=== PATIENT | female | born 1990 | race Caucasian/White ===

== ENCOUNTER 2016-05-03 07:51 | Emergency (ER) | payer SELFPAY ==
[2016-05-03 08:05] VITALS: BP 140/83
[2016-05-03] MEDS ORDERED: Benzoin Compound STICK ONE (09:11)
--- NOTE | 2016-05-03 09:24 | UC ---
Gita Araiza Alok, scribed for Annalisa Nguyen MD on 05/03/16 at 0911 . Laceration HPI - HPI Summary HPI Summary: 26 y/o female presents to the ED with a laceration on the top of the left thumb. Her thumb is currently not bleeding and she has not taken anything for pain. 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 Her last Tetanus shot was 4 years ago. Not immunocompromised. Pt denies any pertinent PMHx or PSHx, takes no regular medication and has NKDA. Pt denies any chance of . Pt denies any EtOH use and smokes < 1/2 ppd of tobacco product. - History Of Current Complaint Chief Complaint: UCLaceration Stated Complaint: THUMB LAC Hx Obtained From: Patient Laceration Location: Hand - Top of left thumb Mechanism Of Injury: Sharp Trauma Onset/Duration: Sudden Onset, Lasting Hours, Still Present Severity: Moderate Aggravating Factors: Nothing Related History: Occupational Injury, Dominant Hand Right - Allergies/Home Medications Allergies/Adverse Reactions: Allergies Allergy/AdvReac Type Severity Reaction Status Date / Time No Known Allergies Allergy Verified 05/03/16 07:59 Home Medications: Home Medications NK [No Home Medications Reported] 05/03/16 [History Confirmed 05/03/16] PMH/Surg Hx/FS Hx/Imm Hx Previously Healthy: Yes Endocrine History Of: Denies: Diabetes, Thyroid Disease Cardiovascular History Of: Denies: Cardiac Disorders, Hypertension Respiratory History Of: Denies: COPD, Asthma GI/ History Of: Denies: Ulcer - Surgical History Surgical History: Yes Surgery Procedure, Year, and Place: LEFT EYE SURGERY AGE 2.5 YRS c section 2012, WISDOM TEETH - Family History Known Family History: Negative: Cardiac Disease, Diabetes - Social History Lives: With Family - Mother Alcohol Use: None Substance Use Type: None Smoking Status (MU): Light Every Day Tobacco Smoker Type: Cigarettes Amount Used/How Often: 1/2 PPD - Immunization History Most Recent Influenza Vaccination: none Most Recent Tetanus Shot: 2012 Review of Systems Constitutional: Negative Skin: Other - Laceration top left thumb Eyes: Negative ENT: Negative Respiratory: Negative Cardiovascular: Negative Gastrointestinal: Negative Genitourinary: Negative Motor: Negative Neurovascular: Negative Musculoskeletal: Negative Neurological: Negative Psychological: Negative All Other Systems Reviewed And Are Negative: Yes Physical Exam Triage Information Reviewed: Yes Appearance: Well-Appearing, No Pain Distress, Well-Nourished Vital Signs: Initial Vital Signs Temp 98.8 F 05/03/16 08:00 Pulse 94 05/03/16 08:00 Resp 16 05/03/16 08:00 BP 140/83 05/03/16 08:00 Pulse Ox 100 05/03/16 08:00 Vital Signs Reviewed: Yes Respiratory: Positive: Normal breath sounds, No respiratory distress Cardiovascular: Positive: Other: - radial 2+ CBT < 2 sec all digits Musculoskeletal Exam: Normal Musculoskeletal: Positive: Other: - + flex/ext MCP, IP against resistance Neurological: Positive: Other: - + sensation throughout finger tip Skin: Positive: Other - No active bleeding Pt with 1cm "U" shaped laceration medial aspect distal thumb, no nail involvement Flap superficial non-suturable Laceration Repair - Laceration Repair 1 Description: Linear Laceration Size After Repair: Length (cm) - 1 Modified For Repair: No Cleansing Completed Via Routine Prep: Yes Closure Material: Skin Adhesive, SteriStrips Closure Method: Single Layer Laceration Course/Dx - Course/Dx Course Of Treatment: Pt with superficial skin flap laceration to left distal thumb. Closed with adhesion glue and steri strips. reviewed with pt wound care , s/sinfection. motrin/apap prn. work modificatons. tdap UTD. return prn - Differential Dx - Laceration/Wound Provider Diagnoses: laceration Discharge - Discharge Plan Condition: Stable Disposition: HOME Patient Education Materials: Laceration (ED), Skin Adhesive Care (ED), Steristrips (ED) Forms: *Work Release Referrals: Ford Stewart MD [Primary Care Provider] - Additional Instructions: - Keep wound clean and dry for the frst 48 hours. Then it is okay to get wet, pat dry - Monitor for signs of infection - reddness, red streaking, odor, drainage - Okay to alternate ibuprofen (advil, motrin) and tylenol every 3 hours for pain - If the steri strips fall off - okay to apply bandaid -Contact your doctor or return with any questions or concerns The documentation as recorded by the Gita mena Alok accurately reflects the service I personally performed and the decisions made by me, Annalisa Nguyen MD.
== END 2016-05-03 09:39 | disposition home or self-care (01) ==
LOC: UCEAST 07:51
DX: S61.012A Laceration without foreign body of left thumb without damage to nail, initial encounter (principal); W26.0XXA Contact with knife, initial encounter; Y93.G1 Activity, food preparation and clean up; Y92.218 Other school as the place of occurrence of the external cause; Y99.0 Civilian activity done for income or pay; R03.0 Elevated blood-pressure reading, without diagnosis of hypertension; F17.210 Nicotine dependence, cigarettes, uncomplicated
CPT/HCPCS: 12001; 99211; G0463

== ENCOUNTER 2017-11-18 10:35 | Emergency (ER) | payer MEDICAID, OTHER ==
[2017-11-18 10:51] VITALS: BP 128/84
--- NOTE | 2017-11-18 11:02 | UC ---
Dental HPI - HPI Summary HPI Summary: This patient is a 27 year old F presenting to [facility] [place] with a chief complaint of a possible abscessed tooth on her right upper jaw that began 2 days ago. The patient rates the pain 7/10 in severity. Patient denies fever and chills. She states she is planning to go see her dentist. Pt has had abscess in her mouth in the past. Pt is a smoker and was instructed to stop while healing. - History of Current Complaint Chief Complaint: UCDentalProblem Stated Complaint: TOOTHACHE Time Seen by Provider: 11/18/17 10:54 Hx Obtained From: Patient Hx Last Menstrual Period: 12/28/16 Onset/Duration: Lasting Days, Still Present Severity: Severe Pain Intensity: 7 Pain Scale Used: 0-10 Numeric Alleviating Factor(s): Nothing - Allergies/Home Medications Allergies/Adverse Reactions: Allergies Allergy/AdvReac Type Severity Reaction Status Date / Time No Known Allergies Allergy Verified 11/18/17 10:51 Home Medications: Home Medications Atenolol TAB* [Tenormin TAB* 25 MG] 25 mg PO DAILY 11/18/17 [History Confirmed 11/18/17] PMH/Surg Hx/FS Hx/Imm Hx Cardiovascular History: Hypertension Other History Of: Negative For: Anticoagulant Therapy - Surgical History Surgical History: Yes Surgery Procedure, Year, and Place: LEFT EYE SURGERY AGE 2.5 YRS c section 2012, WISDOM TEETH - Family History Known Family History: Positive: Hypertension Negative: Cardiac Disease, Diabetes - Social History Alcohol Use: Rare Substance Use Type: None Smoking Status (MU): Light Every Day Tobacco Smoker Type: Cigarettes Amount Used/How Often: 1/2 PPD - Immunization History Most Recent Influenza Vaccination: none Most Recent Tetanus Shot: 2012 Review of Systems Constitutional: Negative - fever and chills ENT: Dental Pain All Other Systems Reviewed And Are Negative: Yes Physical Exam - Summary Physical Exam Summary: Appearance: Well appearing, no pain distress Skin: warm, dry, reflects adequate perfusion Head/face: normal Eyes: EOMI, PAN ENT: gingival ulceration that is TTP above the right canine and premolar Neck: supple, non-tender Respiratory: CTA, breath sounds present Cardiovascular: RRR, pulses symmetrical Abdomen: non-tender, soft Bowel Sounds: present Musculoskeletal: normal, strength/ROM intact Neuro: normal, sensory motor intact, A&Ox3 Triage Information Reviewed: Yes Vital Signs: Initial Vital Signs Temp 98.3 F 11/18/17 10:47 Pulse 85 11/18/17 10:47 Resp 18 11/18/17 10:47 BP 128/84 11/18/17 10:47 Pulse Ox 100 11/18/17 10:47 Vital Signs Reviewed: Yes Procedures - Procedure Summary Procedure Summary: Inferior orbital nerve block on the right: 1cc bupivacaine 0.25% injected by intraoral approach. Total pain relief provided. No complication. Tolerated well. Dental Complaint Course/Dx - Course Course Of Treatment: Leukoplakia or ulcerations seen in the area of discomfort. No definite abscess. Smoker. Antibiotics given. Dental block provided pain relief here. She'll require close follow-up with dental and should cut back on smoking. It was explained that this could represent a precancerous lesion. - Differential Dx/Diagnosis Differential Diagnosis/Dx: Dental Abscess, Dental Caries, Other - Leukoplakia, gingivitis Provider Diagnoses: Gingivitis and dental pain Discharge - Sign-Out/Discharge Documenting (check all that apply): Patient Departure All imaging exams completed and their final reports reviewed: No Studies - Discharge Plan Condition: Improved Disposition: HOME Prescriptions: Chlorhexidine Gluconate [Periogard] 10 ml .ROUTE TID #1 bottle Naproxen [Naproxen 500 mg tab] 500 mg PO BID PRN #12 tablet.dr GEORGE Reason: Pain Penicillin VK 500 MG TAB(NF) [Penicillin VK 500 mg Tab] 500 mg PO QID #40 tab Patient Education Materials: Gingivitis (ED) Referrals: Stacy Ennis, [employer] [Primary Care Provider] - Additional Instructions: Call first thing in the morning to follow up with Dr. Coates your dentist. Return with fever, worse, new symptoms or other concerns. Cut back on her smoking. Will need to have this oral lesion checked soon by your dentist. - Billing Disposition and Condition Condition: IMPROVED Disposition: Home - Attestation Statements Document Initiated by Scribe: Yes Documenting Scribe: Oh Connolly Provider For Whom Roberta is Documenting (Include Credential): Chase Middleton MD Scribe Attestation: Oh Araiza , scribed for Chase Middleton MD on 11/18/17 at 1117. Scribe Documentation Reviewed: Yes Provider Attestation: The documentation as recorded by the Oh mena accurately reflects the service I personally performed and the decisions made by me, Chase Middleton MD
[2017-11-18] MEDS ORDERED: Bupivacaine 0.25% SDV* 30 ML INJ ONE (11:03)
[2017-11-18] MEDS ORDERED: Bupivacaine 0.25% SDV PF* 10 ML VIAL INJ ONE (11:06)
== END 2017-11-18 11:15 | disposition home or self-care (01) ==
LOC: UCEAST 10:35
DX: K05.10 Chronic gingivitis, plaque induced (principal); K08.89 Other specified disorders of teeth and supporting structures; F17.210 Nicotine dependence, cigarettes, uncomplicated
CPT/HCPCS: 99212; G0463; J3490

== ENCOUNTER 2018-12-23 13:11 | Emergency (ER) | payer MEDICAID, OTHER ==
[2018-12-23 13:23] VITALS: BP 140/80
--- NOTE | 2018-12-23 14:02 | UC ---
General HPI - HPI Summary HPI Summary: 28-year-old female presents with onset of nausea, vomiting, and diarrhea yesterday. Mild, intermittent abdominal cramping. States she has had no vomiting today and only 1 episode of diarrhea today. Reports recent exposure to both flu and strep. Noted a mild "scratchy" throat this morning. Denies fever, chills, URI symptoms, abdominal pain, back/flank pain, dysuria, frequency, urgency, or hematuria. - History of Current Complaint Chief Complaint: UCGeneralIllness Stated Complaint: FEVER Time Seen by Provider: 12/23/18 13:34 Hx Obtained From: Patient Hx Last Menstrual Period: three weeks ago Pain Intensity: 3 - Allergy/Home Medications Allergies/Adverse Reactions: Allergies Allergy/AdvReac Type Severity Reaction Status Date / Time No Known Allergies Allergy Verified 12/23/18 13:23 Home Medications: Home Medications Acetaminophen [Tylenol] 1 tab PO ONCE PRN 12/23/18 [History Confirmed 12/23/18] Implanon 1 unit SUBCUT ONCE 12/23/18 [History Confirmed 12/23/18] PMH/Surg Hx/FS Hx/Imm Hx Previously Healthy: Yes Cardiovascular History: Hypertension Other History Of: Negative For: Anticoagulant Therapy - Surgical History Surgical History: Yes Surgery Procedure, Year, and Place: LEFT EYE SURGERY AGE 2.5 YRS c section 2012, WISDOM TEETH - Family History Known Family History: Positive: Hypertension Negative: Cardiac Disease, Diabetes - Social History Occupation: Employed Full-time Lives: With Family Alcohol Use: Rare Substance Use Type: None Smoking Status (MU): Light Every Day Tobacco Smoker Type: Cigarettes Amount Used/How Often: 5 cig/day Household Exposure Type: Cigarettes - Immunization History Most Recent Influenza Vaccination: none Most Recent Tetanus Shot: 2012 Review of Systems All Other Systems Reviewed And Are Negative: Yes Constitutional: Negative: Fever, Chills Skin: Negative: Rash ENT: Positive: Sore Throat. Negative: Ear Ache, Nasal Discharge, Sinus Congestion, Sinus Pain/Tenderness Respiratory: Negative: Cough Cardiovascular: Positive: Negative Gastrointestinal: Positive: Vomiting, Diarrhea, Nausea. Negative: Abdominal Pain Genitourinary: Negative: Dysuria, Hematuria, Frequency, Urgency Musculoskeletal: Positive: Negative Neurological: Positive: Negative Is Patient Immunocompromised?: No Physical Exam - Summary Physical Exam Summary: GENERAL APPEARANCE: Well developed, well nourished, alert and cooperative, and appears to be in no acute distress. EYES: Conjunctiva clear. No drainage. EARS: External auditory canals and tympanic membranes clear, hearing grossly intact. NOSE: No nasal discharge. THROAT: Pharynx normal. No tonsilar inflammation, swelling, exudate, or lesions. Uvula midline. NECK: Neck supple, non-tender without lymphadenopathy. CARDIAC: Normal S1 and S2. No S3, S4 or murmurs. Rhythm is regular. There is no peripheral edema, cyanosis or pallor. Extremities are warm and well perfused. Capillary refill is less than 2 seconds. Peripheral pulses intact. LUNGS: Clear to auscultation without rales, rhonchi, wheezing or diminished breath sounds. ABDOMEN: Positive bowel sounds. Soft, nondistended, nontender. No guarding or rebound. No masses or hepatosplenomegally. MUSKULOSKELETAL: ROM intact to all extremities. No joint erythema or tenderness. Normal muscular development. Normal gait. SKIN: Skin normal color, texture and turgor with no lesions or eruptions. Triage Information Reviewed: Yes Vital Signs: Initial Vital Signs Temp 98.9 F 12/23/18 13:19 Pulse 93 12/23/18 13:19 Resp 18 12/23/18 13:19 BP 140/80 12/23/18 13:19 Pulse Ox 99 12/23/18 13:19 Vital Signs Reviewed: Yes Course/Dx - Course Course Of Treatment: 28-year-old female presents with onset of nausea, vomiting, and diarrhea yesterday. Mild, intermittent abdominal cramping. States she has had no vomiting today and only 1 episode of diarrhea today. Reports recent exposure to both flu and strep. Noted a mild "scratchy" throat this morning. Denies fever, chills, URI symptoms, abdominal pain, back/flank pain, dysuria, frequency, urgency, or hematuria. Afebrile. Hypertensive otherwise vital signs stable. Patient's exam was over unremarkable. Rapid strep test was negative. Reviewed results with patient. Discussed that based on her history and the fact that her symptoms are improving that she likely has a viral gastroenteritis and am recommending symptomatic treatment at this time. She is to follow up with her PCP in 2 days if symptoms are not improving. Anticipatory guidance and warning symptoms reviewed with patient. Verbalizes understanding and agrees with POC. - Differential Dx - Multi-Symptom Differential Diagnoses: Urinary Tract Infection, Other - strep pharyngitis, gastroenteritis - Diagnoses Provider Diagnosis: Nausea vomiting and diarrhea Discharge ED - Sign-Out/Discharge Documenting (check all that apply): Patient Departure All imaging exams completed and their final reports reviewed: No Studies - Discharge Plan Condition: Stable Disposition: HOME Patient Education Materials: Gastroenteritis (ED) Referrals: Stacy Ennis, MANAGER [employer]GRAMMING [Primary Care Provider] - 2 Days (If no improvement.) Additional Instructions: The rapid strep test performed in the clinic today was negative. I suspect your symptoms are from a viral gastroenteritis. Drink plenty of fluids. Try to drink small amounts frequently to avoid filling your stomach to full which can cause vomiting. Avoid beverages containing caffeine or artificial sweeteners as these can worsen symptoms. If you are still having vomiting, start with a clear liquid diet including soup broths, Jello, Popsicles, and chrissie-shanell with carbonation stirred out of it. You may then advance to a bland diet including saltine crackers, toast, bananas , rice, and applesauce. Then return to a normal diet as tolerated. Follow up here or with your primary care provider in 2 days if symptoms persist. Seek immediate medical attention in the emergency room if you develop fever greater than 100.5 F, have severe abdominal pain, persistent vomiting, blood in your vomit or stool, or any worsening of symptoms. - Billing Disposition and Condition Condition: STABLE Disposition: Home
== END 2018-12-23 14:20 | disposition home or self-care (01) ==
LOC: UCEAST 13:11
DX: R19.7 Diarrhea, unspecified (principal); R11.2 Nausea with vomiting, unspecified; R10.9 Unspecified abdominal pain; I10 Essential (primary) hypertension; F17.210 Nicotine dependence, cigarettes, uncomplicated
CPT/HCPCS: 87651; 99211; G0463